=== PATIENT | female | born 1985 | race Caucasian/White ===

== ENCOUNTER 2016-11-02 23:43 | Emergency (ER) | payer OTHER ==
[~2016-11-02] VITALS: Ht 165.1 cm; Wt 56.7 kg
[~2016-11-02 23:43] MED LIST: AZITHROMYCIN 2250 MG PO; EXCEDRIN MIGRA1 EAC1 PO; IBUPROFEN 600600 M1 PO; IRON; NAPROSYN500 MG PO; NORCO 5-325 TA1 EACH PO; NORFLEX100 MG PO
[2016-11-03] MEDS ORDERED: HYDROCODONE-AP1 EAC6 PO (01:49)
[2016-11-03 02:22] VITALS: BP 120/75
== END 2016-11-03 02:23 | disposition home or self-care (01) ==
LOC: ER 23:43
DX: S56.402A Unspecified injury of extensor muscle, fascia and tendon of left index finger at forearm level, initial encounter (principal); N80.9 Endometriosis, unspecified; Z86.2 Personal history of diseases of the blood and blood-forming organs and certain disorders involving the immune mechanism; Y09 Assault by unspecified means; Y93.89 Activity, other specified; Y92.89 Other specified places as the place of occurrence of the external cause; Y99.8 Other external cause status

== ENCOUNTER 2019-05-30 14:50 | Emergency (ER) | payer OTHER ==
[~2019-05-30] VITALS: Ht 165.1 cm; Wt 59.0 kg
[2019-05-30 14:50] VITALS: BP 122/83
[~2019-05-30 14:50] MED LIST changes: +BACTRIM DS TAB1 EACH PO; +CYCLOBENZAPRINE5 MG PO; +HYDROCODONE-AP1 EAC6 PO; +MOBIC7.5 MG PO; +PREDNISONE 20 M20 MG PO
[2019-05-30] MEDS ORDERED: NORFLEX100 MG PO (16:33)
[2019-05-30] MEDS ORDERED: MOBIC7.5 MG PO (16:33)
== END 2019-05-30 16:34 | disposition home or self-care (01) ==
LOC: ER 14:50
DX: M54.16 Radiculopathy, lumbar region (principal); M25.551 Pain in right hip; M25.552 Pain in left hip; R42 Dizziness and giddiness; R20.2 Paresthesia of skin; Z86.2 Personal history of diseases of the blood and blood-forming organs and certain disorders involving the immune mechanism